=== PATIENT | male | born 1940 | race Caucasian/White ===

== ENCOUNTER 2017-11-10 16:38 | Inpatient (IN) | payer OTHER, BC ==
[~2017-11-10] VITALS: Ht 180.3 cm; Wt 126.5 kg
[~2017-11-10 16:38] MED LIST: ACCUPRIL40 MG PO; ADULT LOW STREN81 M2 PO; ASPIRIN E.C.81 M1 PO; BYETTA10 MCG/0.0 SQ; DELTASONE20 MG PO; FUROSEMIDE40 MG PO; GLIPIZIDE-METF1 EAC2 PO; K-DUR10 ME2 PO; LANTUS (UNITS)1 UNIT IV; LANTUS 3 M100 UNITS/ SC; LEVOCETIRIZINE D5 MG PO; LO-DOSE ASPIRIN81 M2 PO; NOVOLOG PE100 UNITS/ SC; PROAIR HFA8.5 GM IH; RHINOCORT AQUA8.6 G1 IH; TRILIPIX135 MG PO; ZITHROMAX Z-PA250 MG PO
[2017-11-10 18:22] LABS: HEMATOCRIT 40.3 % (38.0-50.0); HEMOGLOBIN 13.4 G/DL (12.5-16.6); MCH 30.8 PG (29.0-34.0); MCHC 33.3 G/DL (30.0-36.0); MCV 92.6 FL (86-99); PLATELET COUNT 181 K/uL (156-360); RBC DIS.WIDTH-CV 13.3 % (11.8-14.6); RBC DIS.WIDTH-SD 45.4 % (39-53); RED BLOOD COUNT 4.35 M/uL (4.00-5.50); WHITE BLOOD COUNT 15.9 K/uL (4.1-10.2)
[2017-11-10 18:33] LABS: CHLORIDE 105 mEq/L (99-109); POTASSIUM 3.8 mEq/L (3.7-5.4); SODIUM 141 mEq/L (136-147)
[2017-11-10 18:34] LABS: GLUCOSE 188 mg/dL (70-99)
[2017-11-10 18:38] LABS: GFR ESTIMATE (CALCULATED) 35 mL/min/ (58.99-99999)
[2017-11-10 18:39] LABS: UREA NITROGEN (BUN) 33 mg/dL (9-23)
[2017-11-10 18:45] LABS: TROP-I INTERPRETATION NEGATIVE; TROPONIN-I 0.04 ng/mL (0.0-0.30)
[2017-11-10] MEDS ORDERED: FENOFIBRIC ACI135 MG PO (20:22)
[2017-11-10] MEDS ORDERED: OLMSRTN-AMLDPN1 EAC4 PO (20:26)
[2017-11-10] MEDS ORDERED: POTASSIUM CHLO10 ME4 PO (20:26)
[2017-11-10] MEDS ORDERED: JANUMET 50/51 TABLET PO (20:27)
[2017-11-10] MEDS ORDERED: GLIPIZIDE5 MG PO (20:28)
[2017-11-10] MEDS ORDERED: BYSTOLIC10 MG PO (20:29)
[2017-11-10] MEDS ORDERED: TRESIBA FL100 UNIT/1 SC (20:31)
[2017-11-10] MEDS ORDERED: NOVOLOG PE100 UNITS/ SC (20:41)
[2017-11-10 23:10] VITALS: BP 159/70
[2017-11-11] VITALS (17 sets, daily range): BP systolic 149–242; BP diastolic 62–138
[2017-11-11 03:24] LABS: BASE EXCESS -2.6 mEq/L (-3 to +3); BICARBONATE 25.6 mEq/L (22-26); CARBOXY HGB 1.1 % (0-5); COMMENTS - BLOOD GASES A+C+; DEVICE AMBU; FI02 100 %; METHEMOGLOBIN 0.9 % (0-1.5); O2 FLOW 15 L/MIN; O2 SATURATION (CALCULATED) 84.1 % (95-99); PCO2 57 mm Hg (35-45); PO2 49 mm Hg (80-100); SITE RR
[2017-11-11 03:25] LABS: pH 7.26 (7.35-7.45)
[2017-11-11 03:42] LABS: CHLORIDE 104 mEq/L (99-109); POTASSIUM 3.7 mEq/L (3.7-5.4); SODIUM 140 mEq/L (136-147)
[2017-11-11 03:48] LABS: CREATININE 2.1 mg/dL (0.6-1.3); GFR ESTIMATE (CALCULATED) 33 mL/min/ (58.99-99999); UREA NITROGEN (BUN) 32 mg/dL (9-23)
[2017-11-11 03:56] LABS: TROP-I INTERPRETATION NEGATIVE; TROPONIN-I 0.29 ng/mL (0.0-0.30)
[2017-11-11 03:57] LABS: GLUCOSE 289 mg/dL (70-99)
[2017-11-11 04:10] LABS: COMMENTS - BLOOD GASES C+; DEVICE MASKVENT; FI02 100 %; MODE NSPONT; SITE RR
[2017-11-11 04:11] LABS: BASE EXCESS -0.3 mEq/L (-3 to +3); BICARBONATE 22.8 mEq/L (22-26); CARBOXY HGB 0.5 % (0-5); METHEMOGLOBIN 1.3 % (0-1.5); O2 SATURATION (CALCULATED) 98.2 % (95-99); PCO2 32 mm Hg (35-45); PEEP 13 CM/H20; PO2 413 mm Hg (80-100); PRES. SUPPORT 12 CM/H2O; TOTAL RESP RATE 41 resp/min; pH 7.46 (7.35-7.45)
[2017-11-12] VITALS (24 sets, daily range): BP systolic 117–183; BP diastolic 50–102
[2017-11-12 05:56] LABS: BASOPHIL (%) 0.1 % (0-1); EOSINOPHIL (%) 0 % (0-5); HEMATOCRIT 38.2 % (38.0-50.0); HEMOGLOBIN 12.6 G/DL (12.5-16.6); IMMATURE GRANULOCYTE (%) 0.8 % (0.0-0.7); LYMPHOCYTE (%) 4.1 % (15-42); LYMPHOCYTE COUNT 0.7 K/uL (1.0-2.8); MCH 30.5 PG (29.0-34.0); MCV 92.5 FL (86-99); MONOCYTE (%) 3.7 % (3-12); MONOCYTE COUNT 0.7 K/uL (0-0.8); NEUTROPHIL (%) 91.3 % (45-76); NEUTROPHIL COUNT 16.1 K/uL (1.8-6.4); PLATELET COUNT 199 K/uL (156-360); RBC DIS.WIDTH-CV 13.3 % (11.8-14.6); RBC DIS.WIDTH-SD 45.5 % (39-53); RED BLOOD COUNT 4.13 M/uL (4.00-5.50); WHITE BLOOD COUNT 17.7 K/uL (4.1-10.2)
[2017-11-12 06:05] LABS: TROP-I INTERPRETATION NEGATIVE; TROPONIN-I 0.28 ng/mL (0.0-0.30)
[2017-11-12 06:08] LABS: CHLORIDE 102 MEQ/L (99-109); CREATININE 1.9 MG/DL (0.6-1.3); GFR ESTIMATE (CALCULATED) 37 mL/min/ (58.99-99999); POTASSIUM 3.6 MEQ/L (3.7-5.4); SODIUM 138 MEQ/L (136-147); UREA NITROGEN (BUN) 48 mg/dL (9-23)
[2017-11-12 06:26] LABS: GLUCOSE 405 mg/dL (70-99)
[2017-11-12 16:09] LABS: CHLORIDE 97 MEQ/L (99-109); POTASSIUM 3.6 MEQ/L (3.7-5.4); SODIUM 132 MEQ/L (136-147)
[2017-11-12 16:16] LABS: CREATININE 2.1 MG/DL (0.6-1.3); GFR ESTIMATE (CALCULATED) 33 mL/min/ (58.99-99999); PHOSPHORUS 3.3 mg/dL (2.5-4.9); UREA NITROGEN (BUN) 60 mg/dL (9-23)
[2017-11-12 16:17] LABS: GLUCOSE 517 mg/dL (70-99)
[2017-11-12 20:28] LABS: CHLORIDE 98 MEQ/L (99-109); POTASSIUM 3.8 MEQ/L (3.7-5.4); SODIUM 135 MEQ/L (136-147)
[2017-11-12 20:33] LABS: GFR ESTIMATE (CALCULATED) 35 mL/min/ (58.99-99999); GLUCOSE 351 mg/dL (70-99); PHOSPHORUS 3.3 mg/dL (2.5-4.9); UREA NITROGEN (BUN) 61 mg/dL (9-23)
[2017-11-13] VITALS (24 sets, daily range): BP systolic 113–193; BP diastolic 68–87
[2017-11-13 00:52] LABS: CHLORIDE 105 mEq/L (99-109); POTASSIUM 3.6 mEq/L (3.7-5.4); SODIUM 138 mEq/L (136-147)
[2017-11-13 00:54] LABS: GLUCOSE 218 mg/dL (70-99)
[2017-11-13 00:57] LABS: PHOSPHORUS 2.7 mg/dL (2.5-4.9)
[2017-11-13 00:58] LABS: GFR ESTIMATE (CALCULATED) 35 mL/min/ (58.99-99999)
[2017-11-13 00:59] LABS: UREA NITROGEN (BUN) 67 mg/dL (9-23)
[2017-11-13 06:12] LABS: CHLORIDE 105 MEQ/L (99-109); CREATININE 1.8 MG/DL (0.6-1.3); GFR ESTIMATE (CALCULATED) 39 mL/min/ (58.99-99999); GLUCOSE 139 mg/dL (70-99); PHOSPHORUS 3.3 mg/dL (2.5-4.9); POTASSIUM 3.7 MEQ/L (3.7-5.4); SODIUM 141 MEQ/L (136-147); UREA NITROGEN (BUN) 62 mg/dL (9-23)
[2017-11-13 09:09] LABS: CHLORIDE 105 MEQ/L (99-109); SODIUM 143 MEQ/L (136-147)
[2017-11-13 09:16] LABS: CREATININE 1.7 MG/DL (0.6-1.3); GFR ESTIMATE (CALCULATED) 42 mL/min/ (58.99-99999); GLUCOSE 133 mg/dL (70-99); PHOSPHORUS 3.6 mg/dL (2.5-4.9); UREA NITROGEN (BUN) 62 mg/dL (9-23)
[2017-11-13 10:14] LABS: HEMOGLOBIN A1c (GLYCOHEMOGLOB) 7.3 % (Below 5.7)
[2017-11-13 13:18] LABS: CHLORIDE 103 MEQ/L (99-109); CREATININE 1.7 MG/DL (0.6-1.3); GFR ESTIMATE (CALCULATED) 42 mL/min/ (58.99-99999); POTASSIUM 3.5 MEQ/L (3.7-5.4); SODIUM 142 MEQ/L (136-147); UREA NITROGEN (BUN) 64 mg/dL (9-23)
[2017-11-13 13:25] LABS: GLUCOSE 274 mg/dL (70-99)
[2017-11-13 15:43] LABS: CHLORIDE 101 MEQ/L (99-109); CREATININE 1.7 MG/DL (0.6-1.3); GFR ESTIMATE (CALCULATED) 42 mL/min/ (58.99-99999); GLUCOSE 245 mg/dL (70-99); POTASSIUM 3.6 MEQ/L (3.7-5.4); SODIUM 141 MEQ/L (136-147); UREA NITROGEN (BUN) 64 mg/dL (9-23)
[2017-11-14] VITALS (12 sets, daily range): BP systolic 141–179; BP diastolic 63–89
[2017-11-14 13:28] LABS: HEMOGLOBIN 12.5 G/DL (12.5-16.6); MCH 30.5 PG (29.0-34.0); MCHC 32.9 G/DL (30.0-36.0); MCV 92.7 FL (86-99); PLATELET COUNT 240 K/uL (156-360); RBC DIS.WIDTH-CV 13.2 % (11.8-14.6); RBC DIS.WIDTH-SD 45.1 % (39-53); WHITE BLOOD COUNT 10.6 K/uL (4.1-10.2)
[2017-11-14 13:37] LABS: CHLORIDE 103 mEq/L (99-109)
[2017-11-14 13:38] LABS: SODIUM 140 mEq/L (136-147)
[2017-11-14 13:39] LABS: GLUCOSE 333 mg/dL (70-99)
[2017-11-14 13:43] LABS: CREATININE 1.8 mg/dL (0.6-1.3); GFR ESTIMATE (CALCULATED) 39 mL/min/ (58.99-99999)
[2017-11-14 13:44] LABS: UREA NITROGEN (BUN) 81 mg/dL (9-23)
[2017-11-15] VITALS: BP 168/72
[2017-11-15 04:28] VITALS: BP 162/66
[2017-11-15 05:59] LABS: HEMATOCRIT 38.3 % (38.0-50.0); HEMOGLOBIN 12.3 G/DL (12.5-16.6); MCH 29.9 PG (29.0-34.0); MCHC 32.1 G/DL (30.0-36.0); MCV 93.2 FL (86-99); PLATELET COUNT 250 K/uL (156-360); RBC DIS.WIDTH-CV 13.1 % (11.8-14.6); RBC DIS.WIDTH-SD 45.1 % (39-53); RED BLOOD COUNT 4.11 M/uL (4.00-5.50); WHITE BLOOD COUNT 10.1 K/uL (4.1-10.2)
[2017-11-15 06:40] LABS: CHLORIDE 103 MEQ/L (99-109); CREATININE 1.6 MG/DL (0.6-1.3); GFR ESTIMATE (CALCULATED) 45 mL/min/ (58.99-99999); POTASSIUM 3.9 MEQ/L (3.7-5.4); SODIUM 145 MEQ/L (136-147); UREA NITROGEN (BUN) 64 mg/dL (9-23)
[2017-11-15 06:41] LABS: GLUCOSE 76 mg/dL (70-99)
[2017-11-15 07:56] VITALS: BP 167/74
[2017-11-15 11:14] VITALS: BP 156/70
[2017-11-15 15:49] VITALS: BP 187/81
[2017-11-15 22:31] LABS: APPEARANCE CLEAR ((CLEAR)); BILIRUBIN NEGATIVE; BLOOD LARGE; COLOR YELLOW ((YELLOW)); GLUCOSE (STRIP) >=500; KETONES NEGATIVE; LEUKOCYTES NEGATIVE; NITRITE NEGATIVE; PROTEIN (STRIP) 30; SPECIFIC GRAVITY 1.014 (1.000-1.030); UROBILINOGEN 0.2 MG/DL (0.2-1.0)
[2017-11-15 22:37] LABS: BACTERIA RARE /HPF; EPITHELIAL CELLS NONE SEEN /HPF; MUCUS NONE SEEN /LPF; RED BLOOD CELLS TNTC /HPF (0-5); UCUL ADDED? YES; WHITE BLOOD CELLS 0-5 /HPF (0-5)
[2017-11-15 23:33] VITALS: BP 179/83
[2017-11-16 05:26] VITALS: BP 175/74
[2017-11-16 06:09] LABS: HEMATOCRIT 34.9 % (38.0-50.0); HEMOGLOBIN 11.7 G/DL (12.5-16.6); MCH 30.8 PG (29.0-34.0); MCHC 33.5 G/DL (30.0-36.0); MCV 91.8 FL (86-99); PLATELET COUNT 250 K/uL (156-360); RBC DIS.WIDTH-SD 43.6 % (39-53); WHITE BLOOD COUNT 10.5 K/uL (4.1-10.2)
[2017-11-16 06:35] LABS: CHLORIDE 101 MEQ/L (99-109); CREATININE 1.4 MG/DL (0.6-1.3); GFR ESTIMATE (CALCULATED) 52 mL/min/ (58.99-99999); POTASSIUM 3.8 MEQ/L (3.7-5.4); SODIUM 143 MEQ/L (136-147); UREA NITROGEN (BUN) 50 mg/dL (9-23)
[2017-11-16 06:41] LABS: GLUCOSE 117 mg/dL (70-99)
[2017-11-16 07:42] VITALS: BP 150/65
[2017-11-16 15:19] VITALS: BP 165/75
== END 2017-11-16 18:16 | disposition home health service (06) | DRG 193 ==
LOC: EME 16:38 → 3EAST 21:05 → EDOF 21:05 → 4WEST 21:05 → CANRESERV 21:06 → ENRESERV 21:06 → CANRESERV 21:32 → ENRESERV 21:33 → 3EAST 22:38 → 4WEST 22:44 → 3EAST 11-11 03:24 → ENRESERV 11-11 03:24 → 4WEST 11-11 03:28 → CANRESERV 11-14 14:01 → ENRESERV 11-14 14:01 → 3EAST 11-14 15:23
PROVIDERS: Emergency Medicine; Hospitalist; Internal Medicine; Internal Medicine Critical Care Medicine; Internal Medicine Pulmonary Disease; Surgery
DX: J18.9 Pneumonia, unspecified organism (principal); J96.01 Acute respiratory failure with hypoxia; J44.0 Chronic obstructive pulmonary disease with (acute) lower respiratory infection; E11.65 Type 2 diabetes mellitus with hyperglycemia; J44.1 Chronic obstructive pulmonary disease with (acute) exacerbation; E66.01 Morbid (severe) obesity due to excess calories; E11.22 Type 2 diabetes mellitus with diabetic chronic kidney disease; R33.9 Retention of urine, unspecified; F10.10 Alcohol abuse, uncomplicated; I13.0 Hypertensive heart and chronic kidney disease with heart failure and stage 1 through stage 4 chronic kidney disease, or unspecified chronic kidney disease; I50.32 Chronic diastolic (congestive) heart failure; N18.3 Chronic kidney disease, stage 3 (moderate); Z87.01 Personal history of pneumonia (recurrent); Z68.38 Body mass index [BMI] 38.0-38.9, adult; Z87.891 Personal history of nicotine dependence
CPT/HCPCS: 36600; 71045; 71046; 76870; 80048; 80048 91; 81003; 82948; 83036; 83605; 84100; 84145 90; 84484; 85025; 85027; 87040; 87086; 87641; 93005; 94002; 94003; 94640; 94760; 94799; 99281; 99285; J0295; J0360; J0456; J1644; J1815; J1940; J2930; J7030; J7050